=== PATIENT | male | born 1945 | race Hispanic/Latino ===

== ENCOUNTER → 2025-04-21 | Outpatient (CLI) | payer OTHER ==
[~2025-04-21] MED LIST: IOHEXOL 350 MG/ML 100ML INFUS..BTL IV ONE
--- NOTE | 2025-04-21 23:59 | HMCSR ---
APPROVED REPORT EXAM: Two-dimensional and M-mode echocardiogram with Doppler and color Doppler. INDICATION ICD: R01.1 Cardiac murmur, unspecified 2D Dimensions RVDd3.9 cmLVEF(%)52.1 (>50%)LVED Vol(simp.)67.0 mL IVSd1.0 (0.7-1.1cm)FS(%)27 %LVES Vol(simp.)32.0 mL LVDd5.6 (3.8-5.6cm)LA (2D)3.3 (1.6-4.0cm)LVEF(%, simp.)53 % PWd0.9 (0.7-1.1cm)Ao Root(2D)3.7 (2.0-3.7cm)LA ESV INDEX (BP)21.57 mL/m2 IVSs1.3 cmLVOT diam2.1 (1.8-2.4cm) LVDs4.1 (2.5-4.0cm) PWs1.3 cm M-Mode Dimensions EPSS0.6 cm LA (MM)3.9 (1.6-4.0cm) Ao Root(MM)3.5 (2.0-3.7cm) Aortic Valve AoV Vmax1.3 m/Janette Peak GR6.5 mmHgLVOT Vmax1.0 m/s AoV VTI0.2 mAo Mean GR3.7 mmHgLVOT VTI0.18 m BEN (VMAX)2.74 cm2AVA (VTI) 2.6 cm2 Mitral Valve MV E Vmax68.0 cm/sDECEL Xtog251 ms MV A Vmax82.0 cm/sP 1/2 T75 ms E/A ratio0.8MVA (PHT)2.9 cm2 TDI E/E' Oqnmli43.0E/E' Zkgzkwp23.3 Medial E' Peak V2.72 cm/sLateral E' Peak V6.58 cm/s Pulmonary Valve PV Vmax0.7 m/sPV VTI0.13 mPV Mean GR1.1 mmHg PV Peak GR2.0 mmHg Tricuspid Valve TR Vmax1.8 m/sRAP (EST) 3 yuMlBJVK55.8 mmHg TR Peak GR12.8 mmHg Left Ventricle The left ventricle is normal size. No regional wall motion abnormalities noted. Mild concentric left ventricular hypertrophy. Left ventricle systolic function is low normal. LVEF is 50-55%. Stage I cerna tolic dysfunction. Right Ventricle The right ventricle is normal size. Right ventricular systolic function is mildly reduced, TAPSE 14mm . Atria The left atrium size is normal. The right atrium size is normal. Aortic Valve Aortic valve is trileaflet. Trace aortic regurgitation. There is no aortic valvular stenosis. Mitral Valve Mild mitral annular calcification is noted. The leaflets are mildly thickened and calcified. Trace mi tral regurgitation. There is no mitral valve stenosis. Tricuspid Valve The tricuspid valve is normal in structure. Trace tricuspid regurgitation. RVSP is 13 mmHg. Pulmonic Valve Pulmonic valve is not well visualized. Great Vessels The aortic root is normal in size. IVC is not well visualized. Pericardium There is no pericardial effusion. Other Information Quality : Technically difficult study due to body habitus Conclusion The cardiac chambers are normal in size Mild concentric left ventricular hypertrophy. No regional wall motion abnormalities noted. Left ventricle systolic function is low normal. LVEF is 50-55%. Stage I diastolic dysfunction. Trace aortic regurgitation. Trace mitral regurgitation. Trace tricuspid regurgitation. RVSP is 13 mmHg. There is no pericardial effusion.
--- NOTE | 2025-04-28 18:50 | CARDIOLOGY ---
RAD REPORT: [facility] CT ANGIO RADIOLOGY REPORT: CORONARY CT ANGIOGRAPHY DATE: Apr 28, 2025 QUALITY: Excellent CLINICAL HISTORY AND INDICATION: [elevated CAC ] TECHNIQUE: After obtaining a preliminary suede cleaner image, contrast imaging performed on an [employer] [id number] scanner. A dedicated, limited window, coronary imaging protocol was used, with single breath-hold, retrospective ECG gating, and automated arrhythmia rejection. 100 cc of low osmolar contrast agent: Omnipaque 350 was delivered via a 18-gauge IV catheter in the right antecubital fossa, using a power injector and followed by 60 cc of normal saline bolus as a chaser. Collimated images were reformatted at 0.5 mm intervals, and sent to an offline independent workstation for interpretation, using 3D anatomic reconstructions: Curved multiplanar reconstructions, maximum intensity projections, and multiplanar imaging. 20 mg IV metoprolol was administered prior to scanning. 0.8 mg SL nitroglycerin was given. CORONARY ARTERY DESCRIPTIONS: The coronary arteries arise in normal position. Left main coronary artery: Normal caliber vessel that bifurcates into the LAD and LCx. There is calcified plaque in the distal left main with 20-30% stenosis. Left anterior descending coronary artery: Normal caliber vessel and gives rise to diagonal and septal branches. There is calcified plaque in the proximal LAD with 50-60% stenosis. There is calcified plaque in the mid LAD with 70-80% stenosis. There is calcified plaque in the distal LAD with 20-30% stenosis. Left circumflex coronary artery: Normal caliber, nondominant and gives rise to a large OM branch. There is mixed calcified and noncalcified plaque in the ostial LCx with 60-70% stenosis. Right coronary artery: Large, dominant vessel giving rise to the PL and PDA branches. There is calcified plaque in the proximal RCA with 50-60% stenosis. There is calcified plaque in the mid RCA with 40-50% stenosis. There is calcified plaque in the distal RCA with 40-50% stenosis. CAD-RADs: 4A, severe stenosis of the LAD. Thoracic Aorta: Normal diameter. Sent for FFR evaluation via [facility]. Mary Moreno MD Cardiovascular Disease [facility] MARY MORENO MD Apr 28, 2025 18:50
== END | disposition home or self-care (01) ==
LOC: RAH 08:51
PROVIDERS: ATTEND Internal Medicine Cardiovascular Disease
DX: I34.81 Nonrheumatic mitral (valve) annulus calcification (principal); I51.7 Cardiomegaly; I25.10 Atherosclerotic heart disease of native coronary artery without angina pectoris; R01.1 Cardiac murmur, unspecified
CPT/HCPCS: 93306; 75574; J3490; Q9967

== ENCOUNTER → 2025-04-30 | Outpatient (CLI) | payer OTHER | END | disposition home or self-care (01) | LOC: RAH 02:00 | PROVIDERS: ATTEND Internal Medicine Cardiovascular Disease | DX: I25.10 Atherosclerotic heart disease of native coronary artery without angina pectoris (principal) | CPT/HCPCS: 75580 ==